=== PATIENT | female | born 1950 | race Caucasian/White ===

== ENCOUNTER → 2016-09-15 | Outpatient (CLI) | payer MEDICARE, OTHER | END | disposition home or self-care (01) | LOC: CFH 10:17 | PROVIDERS: ATTEND Internal Medicine | DX: Z12.31 Encounter for screening mammogram for malignant neoplasm of breast (principal); M79.609 Pain in unspecified limb; M25.511 Pain in right shoulder; Z85.3 Personal history of malignant neoplasm of breast; Z90.12 Acquired absence of left breast and nipple | CPT/HCPCS: 73030; G0202 ==

== ENCOUNTER → 2017-03-26 | Outpatient (CLI) | payer MEDICARE, OTHER ==
[~2017-03-26] MED LIST: GADOBUTROL 10 MMOL/10 ML VIAL ONE
== END | disposition home or self-care (01) ==
LOC: CFH 12:31
PROVIDERS: ATTEND Internal Medicine
DX: C50.412 Malignant neoplasm of upper-outer quadrant of left female breast (principal)
CPT/HCPCS: 82565; A9585; C8908

== ENCOUNTER → 2017-04-13 | Outpatient (CLI) | payer MEDICARE, OTHER ==
[~2017-04-13] MED LIST changes: -GADOBUTROL 10 MMOL/10 ML VIAL ONE; +LIDOCAINE 1%, 20ML ONE
== END | disposition home or self-care (01) ==
LOC: CFH 14:05
PROVIDERS: ATTEND Internal Medicine
DX: C50.412 Malignant neoplasm of upper-outer quadrant of left female breast (principal)
CPT/HCPCS: 19083; 76641; 88305; G0206; J3490

== ENCOUNTER → 2017-05-09 | Outpatient (CLI) | payer MEDICARE, OTHER | LOC: CFH 10:55 | PROVIDERS: ATTEND Internal Medicine | DX: Z13.820 Encounter for screening for osteoporosis (principal); M85.88 Other specified disorders of bone density and structure, other site; C50.412 Malignant neoplasm of upper-outer quadrant of left female breast | CPT/HCPCS: 77080 ==

== ENCOUNTER → 2017-05-16 | Outpatient (CLI) | payer MEDICARE, OTHER | LOC: CFH 08:41 | PROVIDERS: ATTEND Internal Medicine | DX: N63.21 Unspecified lump in the left breast, upper outer quadrant (principal); Z85.3 Personal history of malignant neoplasm of breast; Z90.12 Acquired absence of left breast and nipple | CPT/HCPCS: 19081; 77065; 88305; J3490; 88341; 88342; G0461 ==

== ENCOUNTER → 2017-10-08 | Outpatient (CLI) | payer MEDICARE, OTHER ==
[~2017-10-08] MED LIST changes: +INSULIN SINGLE DOSE, ER SQ-INSULIN ONE; -LIDOCAINE 1%, 20ML ONE
== END ==
LOC: CFH 13:16
PROVIDERS: ATTEND Internal Medicine
DX: C50.412 Malignant neoplasm of upper-outer quadrant of left female breast (principal)
CPT/HCPCS: 77066

== ENCOUNTER 2018-11-14 13:31 | Outpatient (CLI) | payer MEDICARE, OTHER | END 2018-11-14 23:59 | disposition home or self-care (01) | LOC: CFH 13:31 | PROVIDERS: ATTEND Internal Medicine | DX: C50.412 Malignant neoplasm of upper-outer quadrant of left female breast (principal) | CPT/HCPCS: 76642; 77065; G0279 ==

== ENCOUNTER 2018-12-19 08:29 | Day surgery (SDC) | payer MEDICARE, OTHER ==
[~2018-12-19] VITALS: Ht 157.5 cm; Wt 61.9 kg
[2018-12-19 08:37] VITALS: BP 137/84
== END 2018-12-19 14:00 | disposition home or self-care (01) ==
LOC: OUT 08:29
PROVIDERS: ATTEND Surgery
DX: N61.0 Mastitis without abscess (principal); N64.1 Fat necrosis of breast; N60.32 Fibrosclerosis of left breast; N64.89 Other specified disorders of breast; I10 Essential (primary) hypertension; Z79.899 Other long term (current) drug therapy; Z85.3 Personal history of malignant neoplasm of breast; Z88.8 Allergy status to other drugs, medicaments and biological substances; Z98.890 Other specified postprocedural states; Z92.3 Personal history of irradiation; Z82.61 Family history of arthritis; Z83.3 Family history of diabetes mellitus; Z80.0 Family history of malignant neoplasm of digestive organs; Z80.41 Family history of malignant neoplasm of ovary; Z80.8 Family history of malignant neoplasm of other organs or systems
CPT/HCPCS: 19281; 19301; 76098; 88307; J0330; J0360; J0690; J1100; J2250; J2310; J2405; J2704; J2710; J3010; J7120; J0171; J3490

== ENCOUNTER 2019-03-13 07:27 | Day surgery (SDC) | payer MEDICARE, OTHER ==
[~2019-03-13] VITALS: Ht 157.5 cm; Wt 61.3 kg
[~2019-03-13 07:27] MED LIST changes: +ASCO10004 PO; +CALC500T93 PO; +CHOL5000 PO; +DENO60DI INJ; +GARL1TAB2 PO; +HYDR10TA4 PO; -INSULIN SINGLE DOSE, ER SQ-INSULIN ONE; +KYOLIC PO; +LACT1CAP35 PO; +LETR2.5T PO; +MAGNESIUM CALM PO; +TURM538C PO; +[UNRECOGNIZED DRUG - OTHER] PO; +zyflamend PO
[2019-03-13 07:58] VITALS: BP 169/82
[2019-03-13] MEDS ORDERED: LACTATED RINGERS 1,000 ML IV SCH (08:09)
[2019-03-13] MEDS ORDERED: FENTANYL PF 100 MCG/2ML ONE (08:57)
[2019-03-13] MEDS ORDERED: MIDAZOLAM 1 MG/ML, 2ML ONE (08:57)
[2019-03-13] MEDS ORDERED: EPINEPHRINE 1 MG/ML, 1ML ONE (09:16)
[2019-03-13] MEDS ORDERED: BUPIVACAINE/PF 0.5% ONE (09:16)
[2019-03-13] MEDS ORDERED: SCOPOLAMINE PATCH, 1.5MG PATCH.TD72 TD ONE ×2 (09:18→09:30)
[2019-03-13] MEDS ORDERED: ROCURONIUM 10MG/ML,5ML ONE (09:36)
[2019-03-13] MEDS ORDERED: PROPOFOL 10 MG/ML, 20ML ONE (09:36)
[2019-03-13] MEDS ORDERED: SUCCINYLCHOLINE 20 MG/ML, 10ML ONE (09:36)
[2019-03-13] MEDS ORDERED: CEFAZOLIN 1,000 MG ONE (09:36)
== END 2019-03-13 12:50 | disposition home or self-care (01) ==
LOC: OUT 07:27
PROVIDERS: ATTEND Podiatrist Foot & Ankle Surgery
DX: M19.071 Primary osteoarthritis, right ankle and foot (principal); M20.11 Hallux valgus (acquired), right foot; M76.821 Posterior tibial tendinitis, right leg; Z88.8 Allergy status to other drugs, medicaments and biological substances
CPT/HCPCS: 28238; 28740; 64445; 64447; 73620; C1713; C1762; C1776; J0171; J0330; J0690; J2250; J2704; J3010; J7120; 76000

== ENCOUNTER 2019-04-17 09:39 | Outpatient (CLI) | payer MEDICARE, OTHER ==
[2019-04-17] MEDS ORDERED: GADOTERATE 10 MMOL/20 ML VIAL ONE (10:56)
== END 2019-04-17 23:59 | disposition home or self-care (01) ==
LOC: CFH 09:39
PROVIDERS: ATTEND Internal Medicine
DX: C50.412 Malignant neoplasm of upper-outer quadrant of left female breast (principal); M85.88 Other specified disorders of bone density and structure, other site; Z85.3 Personal history of malignant neoplasm of breast
CPT/HCPCS: 77049; 77080; A9575; C8937; C8908

== ENCOUNTER → 2019-11-28 | Outpatient (CLI) | payer MEDICARE, OTHER ==
[~2019-11-28] MED LIST changes: +HYDR-2995 PO; -HYDR10TA4 PO; -LETR2.5T PO; +LETR2.5T3 PO
== END | disposition home or self-care (01) ==
LOC: CFH 07:12
PROVIDERS: ATTEND Internal Medicine
DX: C50.412 Malignant neoplasm of upper-outer quadrant of left female breast (principal)
CPT/HCPCS: 77066

== ENCOUNTER 2020-04-08 12:11 | Day surgery (SDC) | payer MEDICARE ==
[~2020-04-08] VITALS: Ht 157.5 cm; Wt 62.0 kg
[~2020-04-08 12:11] MED LIST changes: +ACET-1600 PO; +ASCO100018 PO; -ASCO10004 PO; +CYAN50002 PO; +KRIL1CAP31 PO; +MELA5TAB14 PO; +MV-M1TAB19 PO; +ZINC50TA10 PO
[2020-04-08 12:50] VITALS: BP 178/99
[2020-04-08] MEDS ORDERED: CHLORHEXIDINE 15 ML UDC MM ONE (13:00)
[2020-04-08] MEDS ORDERED: LACTATED RINGERS 1,000 ML IV SCH (13:00)
[2020-04-08] MEDS ORDERED: LIDOCAINE-MPF 1%, 2ML INFIL ONE (13:00)
[2020-04-08] MEDS ORDERED: ACETAMINOPHEN 500 MG TABLET PO PRN (13:30)
[2020-04-08] MEDS ORDERED: hydrOXyzine 10MG TABLET PO PRN (13:30)
[2020-04-08] MEDS ORDERED: BUPIVACAINE/PF 0.5% ONE (13:42)
[2020-04-08] MEDS ORDERED: LIDOCAINE/PF 1%, 30ML ONE (13:42)
[2020-04-08] MEDS ORDERED: hydrALAzine 20 MG/ML, 1ML IV PRN (15:30)
[2020-04-08] MEDS ORDERED: HALOPERIDOL 5 MG/ML IV PRN (15:30)
[2020-04-08] MEDS ORDERED: METHOCARBAMOL 1,000 MG in DEXTROSE 5% 100 ML IV PRN (15:30)
[2020-04-08] MEDS ORDERED: LABETALOL 5MG/ML, 20ML IV PRN (15:30)
[2020-04-08] MEDS ORDERED: OXYcodone 5 MG/5 ML ORAL.SOL UDC PO PRN (15:30)
[2020-04-08] MEDS ORDERED: LORazepam 2 MG/ML, 1ML IVPush PRN (15:30)
[2020-04-08] MEDS ORDERED: EPHEDRINE 50 MG/ML, 1ML IVPush PRN (15:30)
[2020-04-08] MEDS ORDERED: ACETAMINOPHEN 325 MG TABLET PO PRN (15:30)
[2020-04-08] MEDS ORDERED: ONDANSETRON 2MG/ML, 2ML IVPush PRN (15:30)
[2020-04-08] MEDS ORDERED: HYDROmorphone 1 MG/ML, 1ML INJ IVPush PRN (15:30)
[2020-04-08] MEDS ORDERED: BUPIVACAINE/PF 0.5% INFIL ONE (15:46)
[2020-04-08] MEDS ORDERED: FENTANYL PF 100 MCG/2ML ONE (16:37)
[2020-04-08] MEDS ORDERED: OXYcodone 5 MG/5 ML ORAL.SOL UDC ONE (16:38)
[2020-04-08] MEDS: FENTANYL PF 100 MCG/2ML IV PRN ×4 (16:40→17:10)
[2020-04-08] MEDS ORDERED: LABETALOL 5MG/ML, 20ML ONE (16:56)
[2020-04-08] MEDS ORDERED: MELATONIN 5 MG TABLET PO SCH (21:00)
[2020-04-09] MEDS ORDERED: CALCIUM CARBONATE 500 MG TABLET PO SCH (09:00)
[2020-04-09] MEDS ORDERED: LETROZOLE 2.5 MG TABLET PO SCH (09:00)
[2020-04-09] MEDS ORDERED: CHOLECALCIFEROL (VITAMIN D3) 5000 IU CAP PO SCH (09:00)
== END 2020-04-08 19:20 | disposition home or self-care (01) ==
LOC: OUT 12:11
PROVIDERS: ATTEND Orthopaedic Surgery
DX: M19.011 Primary osteoarthritis, right shoulder (principal); M75.101 Unspecified rotator cuff tear or rupture of right shoulder, not specified as traumatic; M65.811 Other synovitis and tenosynovitis, right shoulder; M81.0 Age-related osteoporosis without current pathological fracture; M24.111 Other articular cartilage disorders, right shoulder; I10 Essential (primary) hypertension; Z88.8 Allergy status to other drugs, medicaments and biological substances; Z79.899 Other long term (current) drug therapy; Z20.828 Contact with and (suspected) exposure to other viral communicable diseases; Z85.3 Personal history of malignant neoplasm of breast; Z98.890 Other specified postprocedural states
CPT/HCPCS: 29824; 29826; 29827; 29828; 64415; 87635; 93005; C1713; J3010; J7120

== ENCOUNTER → 2021-01-27 | Outpatient (CLI) | payer MEDICARE ==
[~2021-01-27] MED LIST changes: -MV-M1TAB19 PO; +MV-M1TAB74 PO
== END | disposition home or self-care (01) ==
LOC: CFH 13:18
PROVIDERS: ATTEND Internal Medicine
DX: Z12.31 Encounter for screening mammogram for malignant neoplasm of breast (principal); C50.412 Malignant neoplasm of upper-outer quadrant of left female breast
CPT/HCPCS: 76641; 77063; 77067